=== PATIENT | male | born 1980 | race African-American/Black ===

== ENCOUNTER 2017-07-08 07:42 | Emergency (ER) | payer SELFPAY ==
[~2017-07-08] VITALS: Ht 182.9 cm; Wt 86.4 kg
[2017-07-08 08:13] VITALS: BP 138/86
[2017-07-08] MEDS ORDERED: CIPROFLOXACIN HCL 0.2%/HYDROCORT 1% 10 ML OTIC SUSPENSION AS ONE (09:00)
[2017-07-08] MEDS ORDERED: AMOXICILLIN TRIHYDRATE 250 MG CAPSULE PO ONE (09:00)
== END 2017-07-08 09:21 | disposition home or self-care (01) ==
LOC: EMS 07:43
DX: H60.92 Unspecified otitis externa, left ear (principal); H66.92 Otitis media, unspecified, left ear; H61.22 Impacted cerumen, left ear; F17.210 Nicotine dependence, cigarettes, uncomplicated
CPT/HCPCS: 99283